=== PATIENT | female | born 1995 | race African-American/Black ===

== ENCOUNTER 2023-08-25 10:22 | Emergency (ER) | payer OTHER ==
[~2023-08-25] VITALS: Ht 177.8 cm; Wt 77.3 kg
[2023-08-25 10:53] VITALS: TEMP 97.7
[2023-08-25 13:31] LABS: APPEARANCE,URINE HAZY (CLEAR); BILIRUBIN,URINE NEGATIVE (NEGATIVE); COLOR,URINE YELLOW (YELLOW); GLUCOSE, URINE (UA) NEGATIVE (NEGATIVE); LEUKOCYTE ESTERASE ,URINE SMALL (NEGATIVE); NITRATE,URINE POSITIVE (NEGATIVE); OCCULT BLOOD,URINE NEGATIVE (NEGATIVE); PH,URINE 7.5 (5.0-8.0); PROTEIN,URINE TRACE mg/dL (NEGATIVE); SPECIFIC GRAVITIY, URINE 1.015 (1.003-1.030); UROBILINOGEN,URINE <=1.0 mg/dL (<=1.0)
[2023-08-25 13:50] LABS: BACTERIA,URINE Many /HPF (None Seen); RBC,URINE None Seen /HPF (0-2); SQUAMOUS EPITHELIAL CELL,UR Few /LPF (None Seen)
[2023-08-25] MEDS ORDERED: AZITHROMYCIN 500 MG TABLET PO ONE (14:00)
[2023-08-25] MEDS ORDERED: LIDOCAINE/PF 1% 2 ML VIAL IM ONE (14:00)
[2023-08-25] MEDS ORDERED: CefTRIAXone SODIUM 1 GM/VIAL IM ONE (14:00)
[2023-08-25 14:10] VITALS: BP 127/67; PULSE 85; RESP 17
[2023-08-25] MEDS ORDERED: CLOT21CR12 VG (14:18)
[2023-08-25] MEDS ORDERED: DOXY-354 PO (14:18)
[2023-08-25] MEDS ORDERED: CEPH-558 PO (14:23)
[2023-08-25] MEDS ORDERED: PHEN-674 PO (14:23)
== END 2023-08-25 15:21 | disposition home or self-care (01) ==
LOC: EMS 10:24
DX: R30.0 Dysuria (principal)
CPT/HCPCS: 99283; 81001; 87086; 87186; 87491; 87591; 96372; J0696; J3490; Q9967